=== PATIENT | male | born 1980 | race Caucasian/White ===

== ENCOUNTER 2019-05-07 18:42 | Emergency (ER) | payer SELFPAY ==
[2019-05-07] MEDS: KETOROLAC 30 MG INJ IM (20:41)
== END 2019-05-07 21:35 | disposition home or self-care (01) ==
LOC: FTE 18:42
DX: S52.612A Displaced fracture of left ulna styloid process, initial encounter for closed fracture (principal); W01.0XXA Fall on same level from slipping, tripping and stumbling without subsequent striking against object, initial encounter; Y92.9 Unspecified place or not applicable
CPT/HCPCS: 29125; 73110-LT; 73130-LT; 96372; 99284-25